=== PATIENT | male | born 1965 | race Caucasian/White ===

== ENCOUNTER 2021-06-14 06:10 | Observation (INO) | payer BC ==
[2021-06-14 07:58] LABS: Potassium 5.4 mmol/L (3.5-5.1)
[2021-06-14 07:59] LABS: Troponin High Sensitivity 93.6 pg/mL (<58.9)
[2021-06-14 08:07] LABS: Absolute Lymphocytes (CBC) 1.9 K/uL (0.7-4.9); Hematocrit 44.5 % (39.6-49.0); Lymphocytes % 33.8 % (15.3-44.8); RBC Red Blood Cell Count 4.73 M/uL (4.33-5.43)
--- NOTE | 2021-06-14 08:11 | ER ---
Nurse's Notes [facility] Name: Jimmy Rehman Age: 55 yrs Sex: Male : 1965 Arrival Date: 06/14/2021 Time: 06:13 Bed 14 Private MD: Diagnosis: Unstable angina;Chest pain, unspecified Presentation: 06/14 06:19 Chief complaint: Patient states: chest pain, SOB and hot flashes starting last night lg3 and gradually getting worse with increased feeling of heaviness in the chest. Coronavirus screen: Client denies travel out of the [place] in the last 14 days. At this time, the client does not indicate any symptoms associated with coronavirus-19. Ebola Screen: No symptoms or risks identified at this time. Initial Sepsis Screen: Does the patient meet any 2 criteria? No. Patient's initial sepsis screen is negative. Does the patient have a suspected source of infection? No. Patient's initial sepsis screen is negative. Risk Assessment: Do you want to hurt yourself or someone else? Patient reports no desire to harm self or others. Onset of symptoms was June 13, 2021. 06:19 Method Of Arrival: Ambulatory lg3 06:19 Acuity: FREDY 3 lg3 Triage Assessment: 06:22 General: Appears in no apparent distress. comfortable, Behavior is calm, cooperative. lg3 Pain: Complains of pain in chest Quality of pain is described as crampy, heavy, pressure. EENT: No deficits noted. No signs and/or symptoms were reported regarding the EENT system. Neuro: No deficits noted. Level of Consciousness is awake, alert, obeys commands, Oriented to person, place, time, situation. Cardiovascular: Reports chest pain, shortness of breath, Capillary refill < 3 seconds Clubbing of nail beds is absent JVD is absent Patient's skin is warm and dry. Respiratory: No deficits noted. Reports shortness of breath Airway is patent Trachea midline Respiratory effort is even, unlabored, Respiratory pattern is regular, symmetrical. GI: No deficits noted. No signs and/or symptoms were reported involving the gastrointestinal system. : No deficits noted. No signs and/or symptoms were reported regarding the genitourinary system. Derm: No deficits noted. No signs and/or symptoms reported regarding the dermatologic system. Skin is intact, is healthy with good turgor, Skin is dry, Skin is pink, warm \T\ dry. Musculoskeletal: No deficits noted. No signs and/or symptoms reported regarding the musculoskeletal system. Circulation, motion, and sensation intact. Capillary refill < 3 seconds, Range of motion: intact in all extremities. Historical: - Allergies: 06:22 seasonal allergies; lg3 - Home Meds: 06:22 None [Active]; lg3 - PMHx: 06:22 None; lg3 - PSHx: 06:22 None; lg3 - Immunization history:: Adult Immunizations up to date, Client reports receiving the 2nd dose of the Covid vaccine, pfizer X2. - Social history:: Smoking status: Patient denies any tobacco usage or history of. Patient uses alcohol, occasionally. - Family history:: not pertinent. - Hospitalizations: : No recent hospitalization is reported. Screenin:39 Abuse screen: Denies threats or abuse. Denies injuries from another. Nutritional sm5 screening: No deficits noted. Tuberculosis screening: No symptoms or risk factors identified. Fall Risk None identified. Assessment: 06:39 General: Appears in no apparent distress. Behavior is cooperative, appropriate for age. sm5 Pain: Pain does not radiate. Pain began 2-3 days ago. Neuro: No deficits noted. Level of Consciousness is awake, alert, obeys commands, Oriented to person, place, time, situation. Cardiovascular: Reports chest pain, shortness of breath, Capillary refill < 3 seconds Patient's skin is warm and dry. Rhythm is sinus rhythm. Respiratory: No deficits noted. Airway is patent Trachea midline Respiratory effort is even, unlabored. 07:26 Reassessment: Patient and/or family updated on plan of care and expected duration. Pain ap3 level reassessed. Patient is alert, oriented x 3, equal unlabored respirations, skin warm/dry/pink. General: Appears in no apparent distress. comfortable, Behavior is calm, cooperative, appropriate for age. Neuro: Level of Consciousness is awake, alert, obeys commands, Oriented to person, place, time, situation. Cardiovascular: Reports shortness of breath. Respiratory: Airway is patent Respiratory effort is even, unlabored, patient reports inability to run long distances like he had previously been able to. 08:14 Reassessment: Patient and/or family updated on plan of care and expected duration. Pain ap3 level reassessed. Patient is alert, oriented x 3, equal unlabored respirations, skin warm/dry/pink. 09:15 Reassessment: Patient and/or family updated on plan of care and expected duration. Pain ap3 level reassessed. Patient is alert, oriented x 3, equal unlabored respirations, skin warm/dry/pink. Patient states feeling better. Patient states symptoms have improved. Vital Signs: 06:19 BP 166 / 113; Pulse 69; Resp 17 S; Temp 97.7; Pulse Ox 100% on R/A; Weight 92.99 kg lg3 (R); Height 6 ft. 0 in. (182.88 cm) (R); Pain 2/10; 06:25 BP 164 / 99; Pulse 69; Pulse Ox 100% on R/A; lg3 07:26 BP 155 / 97; Pulse 78; Resp 19; Pulse Ox 100% ; bp 10:17 BP 154 / 99; Pulse 66; Pulse Ox 100% on R/A; ap3 11:45 BP 148 / 99; Pulse 84; Temp 98.2(O); Pulse Ox 99% ; ap3 12:38 BP 179 / 101; Pulse 68; Pulse Ox 98% on R/A; ap3 06:19 Body Mass Index 27.80 (92.99 kg, 182.88 cm) lg3 ED Course: 06:13 Patient arrived in ED. ag3 06:19 Pema Delacruz, RN is Primary Nurse. sm5 06:22 Triage completed. lg3 06:22 Arm band placed on right wrist. lg3 06:25 Maximilian Bullock MD is Attending Physician. kdr 06:25 Pema Delacruz, DALLIN is Primary Nurse. sm5 06:38 Inserted saline lock: 22 gauge in right forearm, using aseptic technique. Blood sm5 collected. Patient maintains SpO2 saturation greater than 95% on room air. 06:39 Patient has correct armband on for positive identification. Bed in low position. Call sm5 light in reach. Side rails up X2. setter helper on. Pulse ox on. NIBP on. 06:49 XRAY Chest (1 view) In Process Unspecified. EDMS 07:13 Attending Physician role handed off by Maximilian Bullock MD rn 07:13 Wes Frazier MD is Attending Physician. rn 08:10 Kip Marquez is Hospitalizing Provider. rn 08:35 COVID swab sent to lab. ap3 10:47 operations label clerk nurse is at the bedside. ap3 14:32 No provider procedures requiring assistance completed. Patient admitted, IV remains in ap3 place. Administered Medications: 08:13 Drug: Aspirin Chewable Tablet 324 mg Route: PO; ap3 08:41 Follow up: Response: No adverse reaction ap3 Outcome: 08:10 Decision to Hospitalize by Provider. rn 13:30 Condition: good ap3 13:30 Admitted to ER Hold. Please see [facility] for further documentation. ap3 14:50 Patient left the ED. iw Signatures: Dispatcher [employer] EDMS Maximilian Bullock MD MD kdr Williams, Irene RN RN iw Wes Frazier MD MD rn Peltier, Brian, RN RN Chantale Mix RN RN ap3 Danette Mai3 Carmela Lewis RN RN lg3 Pema Delacruz, RN RN sm5
--- NOTE | 2021-06-14 08:11 | EDPHYS ---
Physician Documentation [facility] Name: Jimmy Rehman Age: 55 yrs Sex: Male : 1965 Arrival Date: 06/14/2021 Time: 06:13 Bed 14 Private MD: ED Physician Wes Frazier HPI: 06/14 07:48 This 55 yrs old Male presents to ER via Ambulatory with complaints of Chest Pain. rn 07:48 The patient or guardian reports chest pain that is located primarily in the substernal rn area, epigastric area. Onset: 4 month(s) ago. The pain does not radiate. Associated signs and symptoms: Pertinent positives: diaphoresis, shortness of breath, Pertinent negatives: lower extremity swelling, lightheadedness, near syncope, palpitations, syncope, vomiting. The chest pain is described as aching. Duration: The patient or guardian reports multiple episodes, that are intermittent, the episodes last approximately 5 minute(s). Modifying factors: The symptoms are alleviated by rest, the symptoms are aggravated by exertion. Severity of pain: At its worst the pain was mild in the emergency department the pain has improved. The patient has experienced similar episodes in the past. The patient has not recently seen a physician. Pt reports decreased exercise capacity for last few months, normally can run 4.5 miles, has been having to stop a lot more with chest discomfort, relieved by rest, lasts approx 5 min, no radiation, recently woke up with chest discomfort, feeling flushed, and diaphoretic so came in for eval. No fever/cough. Reports father with bypass in early 50s. States thinks had stress test 1.5 years ago but no cath.. Historical: - Allergies: 06:22 seasonal allergies; lg3 - Home Meds: 06:22 None [Active]; lg3 - PMHx: 06:22 None; lg3 - PSHx: 06:22 None; lg3 - Immunization history:: Adult Immunizations up to date, Client reports receiving the 2nd dose of the Covid vaccine, pfizer X2. - Social history:: Smoking status: Patient denies any tobacco usage or history of. Patient uses alcohol, occasionally. - Family history:: not pertinent. - Hospitalizations: : No recent hospitalization is reported. ROS: 07:48 Constitutional: Negative for fever, chills, and weight loss, Eyes: Negative for injury, rn pain, redness, and discharge, Neck: Negative for injury, pain, and swelling, Cardiovascular: Negative for palpitations, and edema, Respiratory: Negative for cough, wheezing, and pleuritic chest pain, Abdomen/GI: Negative for nausea, vomiting, diarrhea, and constipation, MS/Extremity: Negative for injury and deformity, Skin: Negative for injury, rash, and discoloration, Neuro: Negative for headache, weakness, numbness, tingling, and seizure. Exam: 07:48 Constitutional: This is a well developed, well nourished patient who is awake, alert, rn and in no acute distress. Head/Face: Normocephalic, atraumatic. Eyes: Periorbital areas with no swelling, redness, or edema. Cardiovascular: Regular rate and rhythm. No pulse deficits. Respiratory: No increased work of breathing, no retractions or nasal flaring. Abdomen/GI: Soft, non-tender Skin: Warm, dry MS/ Extremity: Pulses equal, no cyanosis. Neuro: Awake and alert, GCS 15 Vital Signs: 06:19 BP 166 / 113; Pulse 69; Resp 17 S; Temp 97.7; Pulse Ox 100% on R/A; Weight 92.99 kg lg3 (R); Height 6 ft. 0 in. (182.88 cm) (R); Pain 2/10; 06:25 BP 164 / 99; Pulse 69; Pulse Ox 100% on R/A; lg3 07:26 BP 155 / 97; Pulse 78; Resp 19; Pulse Ox 100% ; bp 10:17 BP 154 / 99; Pulse 66; Pulse Ox 100% on R/A; ap3 11:45 BP 148 / 99; Pulse 84; Temp 98.2(O); Pulse Ox 99% ; ap3 12:38 BP 179 / 101; Pulse 68; Pulse Ox 98% on R/A; ap3 06:19 Body Mass Index 27.80 (92.99 kg, 182.88 cm) lg3 MDM: 07:13 Patient medically screened. rn 08:09 Differential diagnosis: acute myocardial infarction, acute pericarditis, coronary rn artery disease esophagitis, gastritis, gastroesophageal reflux disease (GERD), stable angina, unstable angina. HEART Score: History: Highly Suspicious (2), ECG: Non specific repolarization disturbance / LBTB / PM (1), Age: > 45 and < 65 years (1), Risk Factors: 1 or 2 risk factors (1), Troponin: > 1 and < 3 x normal limit (1), Total Score = 6. The patient was given aspirin in the Emergency Department. Data reviewed: vital signs, nurses notes, lab test result(s), EKG, radiologic studies, plain films, and as a result, I will admit patient. Counseling: I had a detailed discussion with the patient and/or guardian regarding: the historical points, exam findings, and any diagnostic results supporting the discharge/admit diagnosis, lab results, radiology results, the need for further work-up and treatment in the hospital. Admission orders: after a detailed discussion of the patient's condition and case, the admit orders are written by me. 06/14 06:25 Order name: Basic Metabolic Panel; Complete Time: 08:06 [facility] 06/14 06:25 Order name: CBC with Diff; Complete Time: 08:09 [facility] 06/14 06:25 Order name: Troponin HS; Complete Time: 08:06 [facility] 06/14 08:13 Order name: SARS-COV-2 RT PCR (Document "Date of Onset" if Symptomatic); Complete Time: iw 10:08 06/14 10:15 Order name: Protime (+INR) [facility] 06/14 10:15 Order name: PTT, Activated Partial Thromb [facility] 06/14 06:25 Order name: XRAY Chest (1 view); Complete Time: 09:02 [facility] 06/14 06:25 Order name: EKG; Complete Time: 06:26 kdr 06/14 06:25 Order name: Cardiac monitoring; Complete Time: 06:38 [facility] 06/14 06:25 Order name: EKG - Nurse/Tech; Complete Time: 06:38 kdr 06/14 06:25 Order name: IV Saline Lock; Complete Time: 06:38 [facility] 06/14 10:15 Order name: CL LEFT HEART WITHOUT LV [facility]RI 06/14 13:48 Order name: Lipid Profile [facility]RI 06/14 06:25 Order name: Labs collected and sent; Complete Time: 06:38 kdr 06/14 06:25 Order name: O2 Per Protocol; Complete Time: 06:38 kdr 06/14 06:25 Order name: O2 Sat Monitoring; Complete Time: 06:38 kdr Administered Medications: 08:13 Drug: Aspirin Chewable Tablet 324 mg Route: PO; ap3 08:41 Follow up: Response: No adverse reaction ap3 Disposition Summary: 06/14/21 08:10 Hospitalization Ordered Hospitalization Status: Inpatient Admission rn Provider: Kip Marquez rn Condition: Stable rn Problem: an ongoing problem rn Symptoms: have improved rn Bed/Room Type: Standard rn Location: Telemetry/MedSurg (Inpatient)(06/14/21 14:26) bd Room Assignment: 402(06/14/21 14:26) bd Diagnosis - Unstable angina rn - Chest pain, unspecified rn Forms: - Medication Reconciliation Form rn - SBAR form rn Signatures: Dispatcher [employer] EDMS Gracie Gomez Kevin, MD MD kdr Williams, Irene RN RN iw Wes Frazier MD MD rn Prokisch, Amanda RN RN ap3 Carmela Lewis, RN RN lg3 Corrections: (The following items were deleted from the chart) 13:14 08:10 Telemetry/MedSurg (Inpatient) rn iw 13:14 08:10 rn iw 14: 13:14 [facility] ER HOLD iw bd 14: 13:14 ERHOLD- iw bd
[2021-06-14] MEDS ORDERED: ASPIRIN 81 MG CHEWABLE TABLET ONE (08:16)
--- NOTE | 2021-06-14 08:42 | RAD REPORT ---
EXAM DESCRIPTION: RAD - Chest Single View - 06/14/2021 6:48 am CLINICAL HISTORY: CHEST PAIN COMPARISON: None available TECHNIQUE: AP portable chest image was obtained 06/14/2021 6:48 am . FINDINGS: Lungs are clear. Heart and vasculature are normal. No measurable pleural effusion and no p neumothorax. No acute bony abnormality seen. No acute aortic findings suspected. IMPRESSION: No acute cardiopulmonary process.
[2021-06-14] MEDS ORDERED: HEPA 1000U/500MLS 2,000 UNIT/1,000 ML BAG IV ONE (11:28)
[2021-06-14] MEDS ORDERED: LIDOCAINE 1% 20 ML MDV ONE ×2 (11:28→14:31)
[2021-06-14] MEDS ORDERED: MORPHINE 2 MG/ML SYR IV PRN (12:48)
[2021-06-14] MEDS ORDERED: NITROGLYCERIN 0.4 MG/TAB SL PRN (12:48)
[2021-06-14] MEDS ORDERED: ACETAMINOPHEN 500 MG TAB PO PRN (12:48)
[2021-06-14 12:56] VITALS: BMI 27.8
[2021-06-14] MEDS ORDERED: NA CHLORIDE 0.9% 500 ML ONE (13:36)
[2021-06-14] MEDS ORDERED: FENTANYL CITR 100 MCG/2 ML ONE (14:41)
[2021-06-14] MEDS ORDERED: MIDAZOLAM HCL 2 MG/2 ML INJ ONE (14:41)
[2021-06-14] MEDS ORDERED: VERAPAMIL HCL 10 MG/4 ML VIAL IV ONE (14:42)
[2021-06-14] MEDS ORDERED: HEPARIN 5000 UNIT/ML 1 ML VIAL ONE (14:42)
[2021-06-14] MEDS ORDERED: ATROPINE SULF 1 MG/10 ML SYR IV ONE (14:42)
[2021-06-14 15:09] VITALS: TEMP 98.2
[2021-06-14] MEDS ORDERED: HEPARIN 10,000 UNIT/10 ML VIAL IV ONE (15:22)
--- NOTE | 2021-06-14 16:33 | P.HP ---
Certification for Inpatient Patient admitted to: Observation With expected LOS: <2 Midnights Practitioner: I am a practitioner with admitting privileges, knowledge of patient current condition, hospital course, and medical plan of care. Services: Services provided to patient in accordance with Admission requirements found in Title 42 Section 412.3 of the Code of Federal Regulations Patient History Date of Service: 06/14/21 Reason for admission: Chest pain History of Present Illness: 55-year-old gentleman with a history of hypertension and hyperlipidemia presented to the emergency department with a complaint of anterior chest pain, initially worse with exertion, which progressed to chest pain at rest, nonradiating, associated diaphoresis, no shortness of breath or palpitation. No known relieving factors. In the ED, initial troponin is mildly elevated, EKG showed nonspecific ST-T changes, chest x-ray shows no acute disease. Unstable angina suspected, patient seen by cardiology who recommended cardiac catheterization who recommended cardiac catheterization. Patient is hospitalized for further management. Allergies No Known Allergies Allergy (Verified 05/25/16 07:10) Home Medications: NK [No Home Meds] 06/14/21 - Past Medical/Surgical History -: Hypertension -: Hyperlipidemia - Family History Father -: Heart disease - Social History Smoking Status: Never smoker Alcohol use: No CD- Drugs: No Caffeine use: Yes Place of Residence: Home Review of Systems Other: No fever, no cough, no abdominal pain, no diarrhea, no nausea or vomiting. Except as documented, all other systems reviewed and negative. Physical Examination - Vital Signs Temperature: 98.2 F Blood Pressure: 179/101 Pulse: 68 Respirations: 19 - Physical Exam General: Alert, In no apparent distress, Oriented x3 HEENT: PERRLA, Mucous membr. moist/pink, Sclerae nonicteric Neck: Supple, JVD not distended, No Thyromegaly Respiratory: Clear to auscultation bilaterally, Normal air movement Cardiovascular: No edema, Regular rate/rhythm, Normal S1 S2, No murmurs Capillary refill: <2 Seconds Gastrointestinal: Normal bowel sounds, Soft and benign, Non-distended, No tenderness Musculoskeletal: No swelling Integumentary: No rashes, No erythema Neurological: Normal strength at 5/5 x4 extr, Cranial nerves 3-12 intact Lymphatics: No axilla or inguinal lymphadenopathy - Studies Laboratory Data (last 24 hrs) 06/14/21 10:13: PT Cancelled, INR Cancelled, APTT Cancelled 06/14/21 07:20: Triglycerides 194 H, Cholesterol 300 H, HDL Cholesterol 44, C holesterol/HDL Ratio 6.82 06/14/21 07:20: WBC 5.7, Hgb 15.2, Hct 44.5, Plt Count 252 06/14/21 07:20: Sodium 139, Potassium 5.4 H, BUN 20 H, Creatinine 1.32 H, Glucose 101 Assessment and Plan - Problems (Diagnosis) (1) Unstable angina Current Visit: Yes Status: Acute (2) Essential hypertension Current Visit: Yes Status: Acute (3) Hyperlipidemia Current Visit: Yes Status: Acute - Plan Place patient under observation. Continue to trend troponin. Cardiology consulted who is planning cardiac catheterization tomorrow. Aspirin, metoprolol. We will start heparin drip. High-dose statin Blood pressure control with metoprolol and amlodipine. NTG as needed for angina. Morphine as needed Monitor CBC and blood chemistry. - Advance Directives Does patient have a Living Will: No Does patient have a Durable POA for Healthcare: No
[2021-06-14 17:33] VITALS: O2SAT 99
[2021-06-14 17:51] VITALS: BP 179/101
[2021-06-14] MEDS ORDERED: AMLODIPINE 10 MG TAB PO SCH (18:00)
[2021-06-14] MEDS ORDERED: METOPROLOL TAR 50 MG TAB PO SCH (21:00)
[2021-06-14] MEDS ORDERED: ATORVASTATIN 80 MG TAB PO SCH (21:00)
[2021-06-14] MEDS ORDERED: ATORVASTATIN 40 MG TAB PO SCH (21:00)
--- NOTE | 2021-06-14 21:18 | P.DS ---
Admission Date: 06/14/21 Discharge Date: 06/14/21 Disposition: TRANSFER TO [facility] Discharge Condition: FAIR Reason for Admission: Chest pain - Problems (1) Unstable angina Status: Acute (2) Essential hypertension Status: Acute (3) Hyperlipidemia Status: Acute Brief History of Present Illness: 55-year-old gentleman with a history of hypertension and hyperlipidemia presented to the emergency department with a complaint of anterior chest pain, initially worse with exertion, which progressed to chest pain at rest, nonradiating, associated diaphoresis, no shortness of breath or palpitation. No known relieving factors. In the ED, initial troponin is mildly elevated, EKG showed nonspecific ST-T changes, chest x-ray shows no acute disease. Unstable angina suspected, patient seen by cardiology who recommended cardiac catheterization who recommended cardiac catheterization. Patient is hospitalized for further management. Hospital Course: Patient seen by Dr. Gu and cardiac catheterization performed. Patient noted to have multi-vessel disease. I was informed patient was transferred to the [facility] for further treatment after the cardiac cath for CT surgery evaluation for CABG. Vital Signs/Physical Exam: Temp Pulse Resp BP Pulse Ox 98.2 F 68 19 179/101 H 06/14/21 17:55 06/14/21 17:55 06/14/21 17:55 06/14/21 17:55 Laboratory Data at Discharge: WBC 5.7 K/uL (4.3-10.9) 06/14/21 07:20 Hgb 15.2 g/dL (13.6-17.9) 06/14/21 07:20 Hct 44.5 % (39.6-49.0) 06/14/21 07:20 Plt Count 252 K/uL (152-406) 06/14/21 07:20 PT Cancelled 06/14/21 10:13 INR Cancelled 06/14/21 10:13 APTT Cancelled 06/14/21 10:13 Sodium 139 mmol/L (136-145) 06/14/21 07:20 Potassium 5.4 mmol/L (3.5-5.1) H 06/14/21 07:20 BUN 20 mg/dL (7-18) H 06/14/21 07:20 Creatinine 1.32 mg/dL (0.55-1.3) H 06/14/21 07:20 Glucose 101 mg/dL (74-106) 06/14/21 07:20 Triglycerides 194 mg/dL (<150) H 06/14/21 07:20 Cholesterol 300 mg/dL (<200) H 06/14/21 07:20 HDL Cholesterol 44 mg/dL (40-60) 06/14/21 07:20 Cholesterol/HDL Ratio 6.82 06/14/21 07:20 Home Medications: NK [No Home Meds] 06/14/21 Followup: NONE,NONE [Primary Care Provider] -
--- NOTE | 2021-06-15 00:36 | CON ---
Date of Consultation: 06/14/2021 Reason For Consultation: Non-ST elevation myocardial infarction. History Of Present Illness: Mr. Rehman is a 55-year-old white male without any past medical history whatsoever. Typically, he runs a few miles a day; however, yesterday when he ran only about 100 yard , he developed substernal chest pressure radiating to the arm with shortness of breath and diaphoresi s. Came into the emergency room. EKG was unremarkable. His troponin was positive at 93. Denied PN D, orthopnea, pedal edema, palpitations, or syncope. He denied any fever or chills. Past Medical History: Negative. Allergies: NONE. Review of Systems: Negative. Social History: Negative. Family History: Positive for heart disease. Medications: At home are none. Physical Examination: Vital Signs: Stable, afebrile. HEENT: Negative. Neck: Supple with no bruit. Chest: Clear. Cardiac: Exam revealed a regular rhythm and rate. No murmurs, gallops, or rubs. Abdomen: Benign. Extremities: Revealed no clubbing, cyanosis, or edema. Diagnostic Data: Include a troponin of 193 and creatinine is 1.32. Cholesterol 300, LDL of 217, tri glycerides 194. Impression And Plan: 1.Non-ST elevation myocardial infarction. 2.Renal insufficiency. 3.Dyslipidemia. The patient is to be on statin, aspirin, and beta-debbi. Heart catheterization is recommended toda y to define his coronary anatomy. The patient agrees to proceed. He understands the risks and the b enefits of the procedure. Dr. Jackson will do . NB/MODL Voice ID: [id number] Report ID: [id number]
--- NOTE | 2021-06-15 02:00 | OP ---
Date of Procedure: 06/14/2021 Surgeon: SHIRA KAUFMAN Procedure Performed: Selective coronary angiogram. Indication: Unstable angina. Access: Right radial artery 6-Danish closed with TR band. Complications: None. Bleeding: Less than 10 mL. Anesthesia: Total sedation time was 20 minutes. Description Of Procedure: After risks, benefits, and alternatives were explained, the patient agreed to proceed and signed informed consent. The patient was brought into the Cardiac Catheterization La boratory, prepped and draped in usual sterile fashion. Then, we accessed the radial artery using ped iatric micropuncture kit. I gave fentanyl and versed in incremental doses to achieve adequate modera te sedation. After establishing access to right radial artery, placed 6-Danish slender sheath and to ok a [place] 5-Danish 4.0 catheter into the aortic root, engaged left main and right coronary artery, t ook standard views and then LVEDP was measured at 10 mmHg. Pullback did not record any gradient. Th en, we removed the catheter and the sheath and placed TR band with good hemostasis. Findings: 1.Left main, large and normal. 2.LAD, a very large vessel with a mid 80% to 90% heavily calcified and diagonal branch comes off bef ore the stenosis and its very large branch has approximately 80% stenosis. 3.Left circumflex, moderate size before the bifurcation of the OMs is a 90% to 95% stenosis. 4.RCA, very large and dominant and the PLB branch has 40% stenosis. 5.LVEDP normal at 10 mmHg. Conclusions: Severe multivessel disease. Recommendation: CT Surgery evaluation for CABG. SR/MODL Voice ID: [id number] Report ID: [id number]
[2021-06-15] MEDS ORDERED: ASPIRIN EC 81 MG TAB PO SCH (09:00)
[2021-06-15] MEDS ORDERED: CLOPIDOGREL 75 MG TABLET PO SCH (09:00)
--- NOTE | 2021-06-15 09:36 | EKG ---
Test Date: 2021-06-14 Test Time: 06:37:12 Clinical Research Spec: AMILCAR MEASUREMENT RESULTS: Intervals: Rate: 69 MI: 194 QRSD: 88 QT: 398 QTc: 426 [place]: P: 37 MI: 194 QRS: -4 T: -4 INTERPRETIVE STATEMENTS: Normal sinus rhythm T wave abnormality, consider anterior ischemia Abnormal ECG Compared to ECG 05/23/2016 16:41:17 T-wave abnormality now present Possible ischemia now present Electronically Signed On 06-15-21 09:32:06 CDT by Patrick Gu
== END 2021-06-14 18:07 | disposition short-term general hospital (02) ==
LOC: ER 06:10 → ERHOLD 11:51 → 4TH 15:26 → ERHOLD 15:26
PROVIDERS: ADMIT Internal Medicine; ATTEND Internal Medicine
DX: I21.4 Non-ST elevation (NSTEMI) myocardial infarction (principal); I25.110 Atherosclerotic heart disease of native coronary artery with unstable angina pectoris; I10 Essential (primary) hypertension; E78.5 Hyperlipidemia, unspecified; N28.9 Disorder of kidney and ureter, unspecified; Z20.822 Contact with and (suspected) exposure to COVID-19; Z82.49 Family history of ischemic heart disease and other diseases of the circulatory system
CPT/HCPCS: 93005; 85025; 80048; 36415; 80061; 84484; 71045; 93458; 99285; U0003; C1893; Q9966; J1644 ×2; J2250; J3010; J7040; G0378 ×2

== ENCOUNTER 2023-12-19 10:55 | Day surgery (SDC) | payer BC ==
[2023-12-19] MEDS ORDERED: BACITRACIN OINTMENT 14 GM TUBE TOP ONE (11:00)
[2023-12-19] MEDS ORDERED: BUPIVACAINE 0.25% PF 30 ML VIAL ONE (11:00)
[2023-12-19 11:24] LABS: PT Prothrombin Time 10.7 SECONDS (9.4-12.5); Protime INR 0.95
[2023-12-19 11:31] LABS: Anion Gap 6.5 mEq/L (5.0-15.0); Potassium 4.5 mEq/L (3.5-5.1)
[2023-12-19 11:49] LABS: Absolute Basophils 0.1 K/uL (0-0.5); Absolute Eosinophils 0.4 K/uL (0-0.5); Absolute Lymphocytes (CBC) 2.6 K/uL (0.7-4.9); Absolute Monocytes 0.6 K/uL (0.1-1.3); Absolute Neutrophil 3.9 K/uL (1.8-8.0); Basophils % 0.8 % (0-1.3); Eosinophils % 5.6 % (0-4.4); Hematocrit 41.7 % (39.6-49.0); Lymphocytes % 34.3 % (15.3-44.8); MCH 32.3 pg (27.0-35.0); MCHC 33.6 g/dL (32.0-36.0); MCV 96.2 fL (80-100); MPV 9.3 fL (7.6-11.3); Monocytes % 7.5 % (3.3-12.3); Neutrophils % 51.8 % (41.7-73.7); Platelets 344 thou/uL (152-406); RBC Red Blood Cell Count 4.34 M/uL (4.33-5.43); Red Cell Distribution Width 13.6 % (12.1-15.2)
--- NOTE | 2023-12-20 14:50 | EKG ---
Test Date: 2023-12-19 Test Time: 11:31:34 Final Inspector [employer]iler: JOE MEASUREMENT RESULTS: Intervals: Rate: 72 NM: 188 QRSD: 84 QT: 402 QTc: 440 [place]: P: 24 NM: 188 QRS: -7 T: 44 INTERPRETIVE STATEMENTS: Normal sinus rhythm Low voltage QRS Cannot rule out Anterior infarct, age undetermined Abnormal ECG Compared to ECG 06/14/2021 06:37:12 Low QRS voltage now present Myocardial infarct finding now present T-wave abnormality no longer present Possible ischemia no longer present Electronically Signed On 12-20-23 14:46:34 CDT by Misael Jackson
== END 2023-12-19 11:40 | disposition home or self-care (01) ==
LOC: OR 10:55
PROVIDERS: ATTEND Urology
DX: N43.3 Hydrocele, unspecified (principal); I10 Essential (primary) hypertension; E78.00 Pure hypercholesterolemia, unspecified; Z95.1 Presence of aortocoronary bypass graft; Z53.09 Procedure and treatment not carried out because of other contraindication; Z91.119 Patient's noncompliance with dietary regimen due to unspecified reason
CPT/HCPCS: 36415; 80048; 85025; 85610; 87086; 87088; 93005